=== PATIENT | female | born 1955 | race Caucasian/White ===

== ENCOUNTER 2023-07-30 13:29 | Emergency (ER) | payer MEDICARE, OTHER ==
[2023-07-30] MEDS: Ketorolac 30 MG/ML SDV IM ONE (15:06)
== END 2023-07-30 16:15 | disposition home or self-care (01) ==
LOC: JD.ED 13:29
DX: S42.252A Displaced fracture of greater tuberosity of left humerus, initial encounter for closed fracture (principal); Z88.8 Allergy status to other drugs, medicaments and biological substances; Z88.5 Allergy status to narcotic agent; W19.XXXA Unspecified fall, initial encounter
CPT/HCPCS: 73030; 96372; 99283; J1885; 99282